=== PATIENT | male | born 1980 | race Caucasian/White ===

== ENCOUNTER → 2020-10-16 11:58 | Outpatient (BNVA) | payer OTHER, SELFPAY | PROVIDERS: Visit Provider Urology | DX: Z76.89 Persons encountering health services in other specified circumstances (principal) ==

== ENCOUNTER 2020-11-30 08:05 | Outpatient (REF) | payer OTHER, SELFPAY ==
--- NOTE | 2020-12-03 08:41 | MHC.AU.P13 ---
Adult Audiological Evaluation Date of Visit: 11/30/20 [employer] Operator Used: Not Applicable Reason for Appointment: Audiologic evaluation due to perceived change in hearing ability which fluctuates as well as intermittently experiencing an echo or popping sound when exposed to loud sounds. 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 History: History: Yes Branch: [facility] History: Medical History: Unremarkable Medical History Medication List: None Otoscopy: Right Ear: Unremarkable Left Ear: Unremarkable Tympanometry: Tympanometry performed due to: Patient reports clicking/popping sensations in ears Right Ear: Normal Middle Ear System (Type A) Left Ear: Normal Middle Ear System (Type A) Otoacoustic Emissions Frequency Range Used: 1.6-8 kHz Right Ear Results: Present Emissions Analysis: Present emissions suggest normal cochlear function Rules out peripheral hearing loss greater than a mild degree Left Ear Results: Present Emissions Analysis: Present emissions suggest normal cochlear function Rules out peripheral hearing loss greater than a mild degree Hearing Evaluation: Transducer(s) Used: Insert Earphones Bone Conduction Method: Conventional Audiometry Stimuli Used: Pure Tones Right Ear: Description of Hearing: Normal hearing thresholds 250-8000 Hz Left Ear: Description of Hearing: Normal hearing thresholds 250-8000 Hz Speech Recognition Threshold (SRT): Method Used: Monitored Live Voice Stimuli Used: Spondee Words Right Ear: 10 dB HL Left Ear: 5 dB HL Word Discrimination: Method: Recorded Lists Word Lists Used: NU-6 Right Ear: 100% at 50 dB HL Left Ear: 100% at 45 dB HL QuickSIN: Binaural Quick SIN Test at 50 dB HL score is 1 dB SNR Loss which falls within the normal limits suggesting Vin does not experience any more difficulty in noise than expected. Comparison: Compared to the most recent evaluation: N/A Interpretation of Results: Normal peripheral hearing test results for both ears. Discussed the intermittent change in hearing and ear echo/popping sensation may relate to his noise exposure. He may be experiencing a temporary threshold shift after exposure to loud sounds which can change the quality of sounds/speech. Recommendations: Audiological re-evaluation if changes are noted. Hearing protection should be used when around loud noise. Diagnosis: Primary Diagnosis: H93.293 (Concern of) Abnormal Auditory Perception Services Performed: Comprehensive Audiological Evaluation (CPT 23935) Diagnostic Otoacoustic Emissions (CPT 10182, 26+TC) Tympanometry (CPT 42091) Signature: Provider: Betsy Juan, CCC-A
== END 2020-11-30 08:06 | disposition home or self-care (01) ==
LOC: HO.SH 08:05
PROVIDERS: Visit Provider Internal Medicine Geriatric Medicine
DX: H93.293 Other abnormal auditory perceptions, bilateral (principal)
CPT/HCPCS: 92557; 92567; 92588

== ENCOUNTER → 2024-11-16 14:58 | Outpatient (REF) | payer OTHER, SELFPAY ==
--- NOTE | 2024-11-16 15:00 | CA_ITS ---
Transthoracic Echocardiogram Patient (Last, First, Middle): Vin Morgan, Gender: Male Date of : 1980 Age: 44 Procedure Date: 11/16/2024 Procedure Type: Transthoracic Echocardiogram Location: OP Height: 182.88 cm Weight: 80.74 kg BSA: 2.03 m2 Heart Rate: bpm BP: 110 / 76 mmHg Clinical Training Specialist: TO Referring MD: Stone Dalal MD Manager Life Sciences: Joe Gill MD Symptoms: R01.1 HEART MURMUR Study Quality: Good ECG Rhythm: Sinus Conclusions: - Normal study Findings Left Ventricle Normal left ventricular size, thickness, and systolic function. The visually estimated ejection fraction is between 55-60%. Spectral Doppler is indicative of a normal filling pattern. Right Ventricle Normal right ventricular cavity size and systolic function. Atria Both atria are normal in size. There is no evidence of interatrial shunt. Aortic Valve Normal aortic valve structure and function. There is no aortic valve stenosis. There is no aortic valve regurgitation. Mitral Valve Normal mitral valve structure and function. There is trace mitral valve regurgitation. There is no mitral valve stenosis. Pulmonic Valve The pulmonic valve is likely normal. There is trace pulmonic valve regurgitation. Tricuspid Valve Normal tricuspid valve structure. There is trace tricuspid valve regurgitation. The right ventricular systolic pressure is normal. The right ventricular systolic pressure is 19 mmHg. Normal right atrial pressure. There is no evidence of pulmonary hypertension. Great Vessels All visible segments of the aorta are normal in size. The visualized portions of the pulmonary artery and branches are normal. Venous The inferior vena cava is normal in size and collapses greater than 50% with inspiration. Pericardium/Pleural There is no evidence of pericardial effusion. Prior Study Comparison No prior study available for comparison. Measurements 2D Linear Measurements IVSd: 0.69 0.6-0.9/0.6-1.0 cm LVIDd: 6.02 3.9-5.3/4.2-5.9 cm LVIDd Index: 2.97 2.4-3.2/2.2-3.1 cm/m2 LVIDs: 4.05 2.0-3.6 cm LVPWd: 0.82 0.7-1.1 cm LA Diam: 3.80 2.7-3.8/3.0-4.0 cm LAIDs Index: 1.87 1.5-2.3 cm/m2 LV Mass: 217.32 67-162/88-224 g LV Mass Index: 107.05 43-95/49-115 g/m2 LVOT Diam: 2.10 3.0+(-)1.3 cm 2D Systolic Function EF 4C: 57.10 >55% EF 2C: 59.60 >55% EF BiP: 56.10 >55% Mitral Valve MV Pk E: 0.51 MV PK A: 0.27 MV Decel Time: 338.00 E/A: 1.90 E'Lateral: 14.60 E'Medial: 8.38 E/E' Med: 6.10 E/E' Lat: 3.50 PHT: 99.00 MVA PHT: 2.22 Decel [place]: 1.52 Aortic Valve AoV Pk Al[place]so: 1.25 AoV Mn [place]: 0.85 AoV VTI: 0.29 AoV Pk Grad: 6.00 Aov Mn Grad: 3.00 CHICA Cont.VTI: 2.87 LVOT LVOT Pk [place]: 1.02 LVOT Mn [place]: 0.66 LVOT VTI: 0.24 LVOT Pk Grad: 4.00 LVOT Mn Grad: 2.00 LVOT Diam: 2.10 LVOT Area: 3.46 Diastolic Function MV Pk E: 0.51 MV Pk A: 0.27 E/A: 1.90 E'Medial: 8.38 E/E' Med: 6.10 E' Laterial: 14.60 E/E' Lat: 3.50 Right Ventricle TAPSE (mm): 25.00 TVS' Alphonso: 12.00 Tricuspid Valve TR Pk [place]: 2.00 TR Pk Grad: 16.00 RA Press: 3.00 RVSP: 19.00 Great Vessels Aorta Sinus of Valsalva: 3.72 2.0-3.5 cm Ao Asc: 3.30 2.1-3.4 cm Ao Arch: 3.10 Updated in Other Vendor System with Status of Final Joe Gill MD electronically signed on 11/17/2024 12:34:13 PM with status of Final
== END ==
LOC: HO.CARD 14:58
PROVIDERS: PCP Internal Medicine; Visit Provider Internal Medicine
DX: R01.1 Cardiac murmur, unspecified (principal)
CPT/HCPCS: 93306

== ENCOUNTER → 2024-11-16 15:00 | Outpatient (BNV) | payer OTHER, SELFPAY | PROVIDERS: PCP Internal Medicine; Visit Provider Internal Medicine Cardiovascular Disease | DX: R01.1 Cardiac murmur, unspecified (principal) | CPT/HCPCS: 93306 ==